=== PATIENT | male | born 1975 | race African-American/Black ===

== ENCOUNTER 2018-06-12 12:22 | Emergency (ER) | payer OTHER ==
[~2018-06-12] VITALS: Ht 185.4 cm; Wt 142.5 kg
[2018-06-12 13:22] LABS: HEMOGLOBIN 13.1 g/dl (14.0-18.0); IMMATURE GRANULOCYTES 0.2 % (0.0-5.0); MEAN CELL VOLUME 84.9 fL CALC (80.0-100.0); MEAN CORPUSCULAR HGB 27.1 pG CALC (26.0-32.0); NEUT# 2.42 thou/uL (1.82-7.42); RED BLOOD COUNT 4.83 mill/uL (4.70-6.10); RED CELL DISTRI WIDTH 13.7 % (11.5-15.5)
[2018-06-12 13:35] LABS: ALBUMIN 4.5 g/dL (3.2-5.0); ALKALINE PHOSPHATASE 70 u/l (38-126); ANION GAP 15 (6-22 (CALC)); BILIRUBIN, TOTAL 0.5 mg/dL (0.0-1.4); BUN 10 mg/dL (9-20); BUN/CREATININE RATIO 13 (12-20 (CALC)); CARBON DIOXIDE 26 mmol/l (22-30); CHLORIDE 108 mmol/l (95-108); CREATININE 0.8 mg/dL (0.7-1.3); GFR > 60 ML/MIN (>=60 (CALC)); GFR FOR AFR.AMER. > 60 ML/MIN (>=60 (CALC)); POTASSIUM 4.4 mmol/l (3.5-5.1); SGOT/AST 38 u/l (17-59); SGPT/ALT 41 u/l (21-72); SODIUM 144 mmol/l (137-146)
[2018-06-12] MEDS ORDERED: CIPROFLOXACN500 MG PO (16:13)
[2018-06-12] MEDS ORDERED: METRONIDAZOL250 MG PO (16:13)
[2018-06-12 16:27] VITALS: BP 125/76
== END 2018-06-12 16:27 | disposition home or self-care (01) | DRG 395 ==
LOC: ED 12:22
PROVIDERS: Emergency Medicine
DX: K61.1 Rectal abscess (principal)
CPT/HCPCS: Q9967

== ENCOUNTER 2018-08-12 07:06 | Day surgery (SDC) | payer OTHER ==
[~2018-08-12] VITALS: Ht 195.6 cm; Wt 129.3 kg
[~2018-08-12 07:06] MED LIST: CIPROFLOXACN500 MG PO; METRONIDAZOL250 MG PO
[2018-08-12] MEDS ORDERED: TAMSULOSIN0.4 MG PO (07:19)
[2018-08-12 10:34] VITALS: BP 115/76
== END 2018-08-12 10:55 | DRG 355 ==
LOC: ORM 07:06
PROVIDERS: ATTEND Surgery
PROC: 0WQF0ZZ Repair Abdominal Wall, Open Approach (ICD-10-PCS; principal; 2018-08-12)
DX: K43.6 Other and unspecified ventral hernia with obstruction, without gangrene (principal)
CPT/HCPCS: C9290

== ENCOUNTER 2018-12-16 06:06 | Day surgery (SDC) | payer OTHER ==
[~2018-12-16] VITALS: Ht 195.6 cm; Wt 129.3 kg
[~2018-12-16 06:06] MED LIST changes: +TAMSULOSIN0.4 MG PO
[2018-12-16 06:57] LABS: HEMATOCRIT 43.5 % (39.0-50.0); MEAN CELL VOLUME 85.6 fL CALC (80.0-100.0); MEAN CORPUSCULAR HGB 27.6 pG CALC (26.0-32.0); MEAN CORPUSCULAR HGB CONC 32.2 g/L CALC (32.0-36.0); NEUT# 1.17 thou/uL (1.82-7.42); RED BLOOD COUNT 5.08 mill/uL (4.70-6.10); RED CELL DISTRI WIDTH 13.6 % (11.5-15.5)
[2018-12-16 07:08] LABS: BARBITURATES NEGATIVE (NEGATIVE); COCAINE NEGATIVE (NEGATIVE); METHADONE NEGATIVE (NEGATIVE); OXCYCODONE NEGATIVE (NEGATIVE); TETRAHYDROCANNABIONOL NEGATIVE (NEGATIVE); TRICYLIC ANTIDEPRESSANTS NEGATIVE (NEGATIVE)
[2018-12-16 07:16] LABS: ACT PARTIAL THROMBO TIME 27.1 SECONDS (20.0-32.5); INTERNATIONAL NORMALIZED RATIO 1.1 RATIO (0.7-1.3); PROTHROMBIN TIME 11.2 SECONDS (9.0-12.5)
[2018-12-16 07:20] LABS: ALBUMIN 4.5 g/dL (3.2-5.0); ALKALINE PHOSPHATASE 54 u/l (38-126); ANION GAP 15 (6-22 (CALC)); BILIRUBIN, TOTAL 0.5 mg/dL (0.0-1.4); BUN 7 mg/dL (9-20); BUN/CREATININE RATIO 8 (12-20 (CALC)); CARBON DIOXIDE 26 mmol/l (22-30); CHLORIDE 107 mmol/l (95-108); CREATININE 0.8 mg/dL (0.7-1.3); GFR > 60 ML/MIN (>=60 (CALC)); GFR FOR AFR.AMER. > 60 ML/MIN (>=60 (CALC)); POTASSIUM 4.1 mmol/l (3.5-5.1); SGOT/AST 27 u/l (17-59); SODIUM 143 mmol/l (137-146); TOTAL PROTEIN 7.5 g/dL (6.3-8.2)
[2018-12-16 07:37] VITALS: BP 121/62
[2018-12-16 08:33] LABS: BARBITURATES NEGATIVE (NEGATIVE); COCAINE NEGATIVE (NEGATIVE); METHADONE NEGATIVE (NEGATIVE); OXCYCODONE NEGATIVE (NEGATIVE); TETRAHYDROCANNABIONOL NEGATIVE (NEGATIVE); TRICYLIC ANTIDEPRESSANTS NEGATIVE (NEGATIVE)
== END 2018-12-16 11:04 | DRG 395 ==
LOC: ORM 06:06
PROVIDERS: ATTEND Surgery
DX: K60.3 Anal fistula (principal); F15.90 Other stimulant use, unspecified, uncomplicated; Z53.09 Procedure and treatment not carried out because of other contraindication
CPT/HCPCS: C9290

== ENCOUNTER 2019-01-27 05:50 | Day surgery (SDC) | payer OTHER ==
[2019-01-27] MEDS ORDERED: METRONIDAZOL250 MG PO (07:15)
[2019-01-27] MEDS ORDERED: CEPHALEXIN250 MG PO (07:15)
[2019-01-27 07:26] LABS: BARBITURATES NEGATIVE (NEGATIVE); COCAINE NEGATIVE (NEGATIVE); METHADONE NEGATIVE (NEGATIVE); OXCYCODONE NEGATIVE (NEGATIVE); TETRAHYDROCANNABIONOL NEGATIVE (NEGATIVE); TRICYLIC ANTIDEPRESSANTS NEGATIVE (NEGATIVE)
[2019-01-27 07:29] LABS: HEMATOCRIT 46.4 % (39.0-50.0); HEMOGLOBIN 14.9 g/dl (14.0-18.0); IMMATURE GRANULOCYTES 0.3 % (0.0-5.0); MEAN CELL VOLUME 86.6 fL CALC (80.0-100.0); MEAN CORPUSCULAR HGB 27.8 pG CALC (26.0-32.0); MEAN CORPUSCULAR HGB CONC 32.1 g/L CALC (32.0-36.0); NEUT# 0.8 thou/uL (1.82-7.42); RED BLOOD COUNT 5.36 mill/uL (4.70-6.10); RED CELL DISTRI WIDTH 13.6 % (11.5-15.5)
[2019-01-27 07:37] LABS: ACT PARTIAL THROMBO TIME 26.9 SECONDS (20.0-32.5); PROTHROMBIN TIME 10.8 SECONDS (9.0-12.5)
[2019-01-27 07:40] LABS: ALBUMIN 4.7 g/dL (3.2-5.0); ALKALINE PHOSPHATASE 47 u/l (38-126); ANION GAP 16 (6-22 (CALC)); BILIRUBIN, TOTAL 0.6 mg/dL (0.0-1.4); BUN 7 mg/dL (9-20); BUN/CREATININE RATIO 8 (12-20 (CALC)); CARBON DIOXIDE 26 mmol/l (22-30); CHLORIDE 103 mmol/l (95-108); CREATININE 0.9 mg/dL (0.7-1.3); GFR > 60 ML/MIN (>=60 (CALC)); GFR FOR AFR.AMER. > 60 ML/MIN (>=60 (CALC)); POTASSIUM 4.2 mmol/l (3.5-5.1); SGOT/AST 25 u/l (17-59); SODIUM 141 mmol/l (137-146); TOTAL PROTEIN 7.7 g/dL (6.3-8.2)
[2019-01-27 09:45] VITALS: BP 118/69
== END 2019-01-27 10:04 | DRG 395 ==
LOC: ORM 05:50
PROVIDERS: ATTEND Surgery
PROC: 0HB9XZZ Excision of Perineum Skin, External Approach (ICD-10-PCS; principal; 2019-01-27)
DX: K60.3 Anal fistula (principal)
CPT/HCPCS: C9290; J2710

== ENCOUNTER 2021-07-22 06:14 | Day surgery (SDC) | payer OTHER ==
[~2021-07-22] VITALS: Ht 195.6 cm; Wt 131.5 kg
[~2021-07-22 06:14] MED LIST changes: +CEPHALEXIN250 MG PO
[2021-07-22] MEDS ORDERED: [UNRECOGNIZED DRUG - OTHER] PO (06:38)
[2021-07-22 08:14] VITALS: BP 123/75
== END 2021-07-22 08:25 | disposition home or self-care (01) | DRG 395 ==
LOC: ENDO 06:14 → ORM 07:00 → ENDO 08:25
PROVIDERS: ATTEND Surgery
PROC: 0DJD8ZZ Inspection of Lower Intestinal Tract, Via Natural or Artificial Opening Endoscopic (ICD-10-PCS; principal; 2021-07-22)
DX: K64.8 Other hemorrhoids (principal); Z80.0 Family history of malignant neoplasm of digestive organs